=== PATIENT | female | born 1995 | race Caucasian/White ===

== ENCOUNTER 2020-04-14 07:19 | Emergency (ER) | payer BC, OTHER ==
[~2020-04-14] VITALS: Ht 157.2 cm; Wt 59.0 kg
--- NOTE | 2020-04-14 07:27 | ED Cardiac General ---
History of Present Illness General Stated Complaint: CP,PALPATIONS History of Present Illness Date Seen by Provider: Apr 14, 2020 Time Seen by Provider: 07:26 Initial Comments 24-year-old female presents with palpitations. Patient has a known history of palpitations and is currently on metoprolol 25 mg daily. She is also on Lexapro and Klonopin for anxiety. Patient reports that this morning she got to work she felt like her heart was racing. EMS reports when they arrived her heart rate was around 110 but then it elevated in the 180s but then back down about 150s. Patient reports she took her metoprolol just prior to EMS arriving. Patient d enies any cough, fever, chills, nausea or vomiting. Allergies and Home Medications Allergies Coded Allergies: amoxicillin (Verified Allergy, Unknown, 04/14/20) clavulanic acid (Verified Allergy, Unknown, 04/14/20) Patient Home Medication List Home Medication List Reviewed: Yes Review of Systems Review of Systems Constitutional: No chills, No fever, No malaise Respiratory: Denies Cough, Denies Shortness of Air, Denies Wheezing Cardiovascular: Irregular Heart Rate, Palpitations Gastrointestinal: Denies Abdominal Pain, Denies Diarrhea, Denies Nausea, Denies Vomiting Genitourinary: No Symptoms Reported Musculoskeletal: no symptoms reported Skin: no symptoms reported Endocrine: No Symptoms Reported Hematologic/Lymphatic: No Symptoms Reported Past Irlrfiz-Ercqxc-Xabixv Hx Past Med/Social Hx: Reviewed Nursing Past Med/Soc Hx Physical Exam Vital Signs Vital Signs - First Documented 04/14/20 07:20 Temp 37.0 Pulse 99 Resp 18 B/P (MAP) 136/97 (110) Pulse Ox 99 O2 Delivery Room Air Capillary Refill : Height, Weight, BMI Height: '" Weight: lbs. oz. kg; BMI Method: General Appearance: No Apparent Distress, WD/WN HEENT: PERRL/EOMI Neck: Non Tender, Supple Respiratory: Lungs Clear Cardiovascular: Normal Peripheral Pulses, Tachycardia Gastrointestinal: Non Tender, Soft Extremity: Normal Capillary Refill, Normal Inspection, Normal Range of Motion Neurologic/Psychiatric: Alert, Oriented x3, No Motor/Sensory Deficits, Normal Mood/Affect, commercial sales specialist II-XII Norm as Tested Skin: Normal Color, Warm/Dry Progress/Results/Core Measures Results/Orders Lab Results Laboratory Tests Test 04/14/20 07:20 Range/Units White Blood Count 7.6 4.3-11.0 10^3/uL Red Blood Count 5.18 H 3.80-5.11 10^6/uL Hemoglobin 15.0 11.5-16.0 g/dL Hematocrit 46 35-52 % Mean Corpuscular Volume 89 80-99 fL Mean Corpuscular Hemoglobin 29 25-34 pg Mean Corpuscular Hemoglobin Concent 33 32-36 g/dL Red Cell Distribution Width 11.9 10.0-14.5 % Platelet Count 403 H 130-400 10^3/uL Mean Platelet Volume 9.7 9.0-12.2 fL Immature Granulocyte % (Auto) 0 % Neutrophils (%) (Auto) 65 42-75 % Lymphocytes (%) (Auto) 27 12-44 % Monocytes (%) (Auto) 6 0-12 % Eosinophils (%) (Auto) 2 0-10 % Basophils (%) (Auto) 1 0-10 % Neutrophils # (Auto) 4.9 1.8-7.8 10^3/uL Lymphocytes # (Auto) 2.0 1.0-4.0 10^3/uL Monocytes # (Auto) 0.5 0.0-1.0 10^3/uL Eosinophils # (Auto) 0.2 0.0-0.3 10^3/uL Basophils # (Auto) 0.0 0.0-0.1 10^3/uL Immature Granulocyte # (Auto) 0.0 0.0-0.1 10^3/uL Sodium Level 138 135-145 MMOL/L Potassium Level 3.2 L 3.6-5.0 MMOL/L Chloride Level 104 98-107 MMOL/L Carbon Dioxide Level 22 21-32 MMOL/L Anion Gap 12 5-14 MMOL/L Blood Urea Nitrogen 7 7-18 MG/DL Creatinine 0.75 0.60-1.30 MG/DL Estimat Glomerular Filtration Rate > 60 BUN/Creatinine Ratio 9 Glucose Level 103 70-105 MG/DL Calcium Level 9.1 8.5-10.1 MG/DL Corrected Calcium 8.9 8.5-10.1 MG/DL Magnesium Level 2.1 1.6-2.4 MG/DL Total Bilirubin 0.3 0.1-1.0 MG/DL Aspartate Amino Transf (AST/SGOT) 14 5-34 U/L Alanine Aminotransferase (ALT/SGPT) 14 0-55 U/L Alkaline Phosphatase 102 40-136 U/L Troponin I < 0.028 <0.028 NG/ML C-Reactive Protein High Sensitivity 3.63 H 0.00-0.50 MG/DL B-Type Natriuretic Peptide < 10.0 <100.0 PG/ML Total Protein 8.5 H 6.4-8.2 GM/DL Albumin 4.3 3.2-4.5 GM/DL My Orders Orders - DEN LANGLEYR L DO BNP (04/14/20 07:27) Cbc With Automated Diff (04/14/20 07:27) Comprehensive Metabolic Panel (04/14/20 07:27) Hs C Reactive Protein (04/14/20 07:27) Magnesium (04/14/20 07:27) Troponin I (04/14/20 07:27) Chest 1 View, Ap/Pa Only (04/14/20 07:27) Ed Iv/Invasive Line Start (04/14/20 07:37) Ns Iv 1000 Ml (Sodium Chloride 0.9%) (04/14/20 07:45) Magnesium 1 Gm/100 Ml Ivpb (Magnesium Craig (04/14/20 07:45) Metoprolol Tartrate Injection (Lopressor (04/14/20 08:00) Medications Given in ED Current Medications Medications Dose Ordered Sig/Aurelia Route Start Time Stop Time Status Last Admin Dose Admin Magnesium Sulfate/ Dextrose 100 ml @ 100 mls/hr ONCE ONCE IV 04/14/20 07:45 04/14/20 08:44 DC 04/14/20 07:54 100 MLS/HR Vital Signs/I&O 04/14/20 04/14/20 07:20 08:08 Temp 37.0 Pulse 99 84 Resp 18 18 B/P (MAP) 136/97 (110) 136/92 Pulse Ox 99 98 O2 Delivery Room Air Room Air Progress Progress Note : Time: 09:08 Progress Note Patient's heart rate came down into the mid 80s to mid 100s. Patient has known palpitations and unspecific tachycardia. I recommended she call her paving and surfacing labourer. That if she continues to have palpitations and fast heart rate that she takes an additional metoprolol. Patient is stable and will be discharged home Initial ECG Impression Date: Apr 14, 2020 Initial ECG Impression Time: 07:21 Initial ECG Rhythm: S.Tach Initial ECG Intervals: QT (QTC 481) Comment sinus tachycardia, QTC 481, Departure Impression Primary Impression: Intermittent palpitations Disposition: HOME, SELF-CARE Condition: Stable Departure-Patient Inst. Patient Instructions: Palpitations, Tachycardia Add. Discharge Instructions: Take an additional 25 mg metoprolol if symptoms continue or return Follow-up with your paving and surfacing labourer for further evaluation and further recommendations Return to the ER as needed Work/School Note: Work Release Form Date Seen in the Emergency Department: Apr 14, 2020 Return to Work: Apr 15, 2020 MARCELINA LANGLEY DO Apr 14, 2020 07:27
[2020-04-14 07:36] LABS: BASOPHILS % (AUTO) 1 % (0-10); EOSINOPHILS # (AUTO) 0.2 10^3/uL (0.0-0.3); EOSINOPHILS % (AUTO) 2 % (0-10); HEMATOCRIT 46 % (35-52); LYMPHOCYTES % (AUTO) 27 % (12-44); MEAN CORPUSCULAR HEMOGLOBIN 29 pg (25-34); MEAN CORPUSCULAR HGB CONC 33 g/dL (32-36); MEAN CORPUSCULAR VOLUME 89 fL (80-99); MEAN PLATELET VOLUME 9.7 fL (9.0-12.2); MONOCYTES # (AUTO) 0.5 10^3/uL (0.0-1.0); MONOCYTES % (AUTO) 6 % (0-12); NEUTROPHILS # (AUTO) 4.9 10^3/uL (1.8-7.8); NEUTROPHILS % (AUTO) 65 % (42-75); PLATELET COUNT 403 10^3/uL (130-400); WHITE BLOOD COUNT 7.6 10^3/uL (4.3-11.0)
[2020-04-14] MEDS ORDERED: NS IV 1000 ML 1,000 ML IV SCH (07:45)
[2020-04-14] MEDS ORDERED: MAGNESIUM 1 GM/100 ML IVPB 100 ML IV ONE (07:45)
--- NOTE | 2020-04-14 07:49 | NUR ---
HR UP TO [address] NOTIFIED.
--- NOTE | 2020-04-14 07:52 | NUR ---
DR NOTIFIED THAT LOCLAIRE HELD HR 99
[2020-04-14 07:53] LABS: ALBUMIN 4.3 GM/DL (3.2-4.5); CHLORIDE 104 MMOL/L (98-107); POTASSIUM 3.2 MMOL/L (3.6-5.0); SODIUM 138 MMOL/L (135-145)
[2020-04-14 07:54] LABS: CALCIUM 9.1 MG/DL (8.5-10.1)
[2020-04-14 07:55] LABS: GLUCOSE 103 MG/DL (70-105); TOTAL PROTEIN 8.5 GM/DL (6.4-8.2)
[2020-04-14 07:56] LABS: CARBON DIOXIDE 22 MMOL/L (21-32)
[2020-04-14 07:57] LABS: BILIRUBIN,TOTAL 0.3 MG/DL (0.1-1.0)
[2020-04-14 07:59] LABS: ALKALINE PHOSPHATASE 102 U/L (40-136); CREATININE SERUM 0.75 MG/DL (0.60-1.30); GFR ESTIMATED > 60
[2020-04-14 08:00] LABS: BUN/CREATININE RATIO 9
[2020-04-14] MEDS ORDERED: meTOprolol 5 MG/5 ML (LOPRESSOR) VIAL IV ONE (08:00)
[2020-04-14 08:02] LABS: ALANINE AMINOTRANSFERASE 14 U/L (0-55); MAGNESIUM 2.1 MG/DL (1.6-2.4)
--- NOTE | 2020-04-14 08:31 | NUR ---
MONITOR SHOWS SR WITH RATE OF 86
[2020-04-14 09:18] VITALS: BP 117/69
== END 2020-04-14 09:22 | disposition home or self-care (01) ==
LOC: ER 07:21
DX: R00.2 Palpitations (principal); F41.9 Anxiety disorder, unspecified; Z88.1 Allergy status to other antibiotic agents
CPT/HCPCS: 36415; 71045; 80053; 83735; 83880; 84484; 85025; 86141

== ENCOUNTER 2021-11-24 17:46 | Emergency (ER) | payer BC, OTHER ==
[~2021-11-24] VITALS: Ht 157.5 cm; Wt 73.5 kg
[2021-11-24] MEDS ORDERED: LACTATED RINGERS 1,000 ML IV ONE (18:15)
[2021-11-24 18:19] LABS: BASOPHILS # (AUTO) 0.1 10^3/uL (0.0-0.1); BASOPHILS % (AUTO) 1 % (0-10); EOSINOPHILS # (AUTO) 0.4 10^3/uL (0.0-0.3); EOSINOPHILS % (AUTO) 5 % (0-10); HEMATOCRIT 37 % (35-52); HEMOGLOBIN 12.1 g/dL (11.5-16.0); LYMPHOCYTES # (AUTO) 2.6 10^3/uL (1.0-4.0); LYMPHOCYTES % (AUTO) 30 % (12-44); MEAN CORPUSCULAR HEMOGLOBIN 27 pg (25-34); MEAN CORPUSCULAR HGB CONC 33 g/dL (32-36); MEAN CORPUSCULAR VOLUME 82 fL (80-99); MEAN PLATELET VOLUME 9.4 fL (9.0-12.2); MONOCYTES # (AUTO) 0.6 10^3/uL (0.0-1.0); MONOCYTES % (AUTO) 7 % (0-12); NEUTROPHILS # (AUTO) 5.2 10^3/uL (1.8-7.8); NEUTROPHILS % (AUTO) 58 % (42-75); PLATELET COUNT 400 10^3/uL (130-400); WHITE BLOOD COUNT 8.9 10^3/uL (4.3-11.0)
[2021-11-24 18:23] LABS: POTASSIUM 3.2 MMOL/L (3.6-5.0)
[2021-11-24 18:24] LABS: CALCIUM 8.6 MG/DL (8.5-10.1)
[2021-11-24 18:29] LABS: CREATININE SERUM 0.7 MG/DL (0.60-1.30)
[2021-11-24 18:31] LABS: MAGNESIUM 1.6 MG/DL (1.6-2.4)
--- NOTE | 2021-11-24 18:47 | ED Cardiac General ---
History of Present Illness General Chief Complaint: Cardiac/General Problems Stated Complaint: SVT Nursing Triage Note: pt to room by ems. ems reports pt has had hx of SVT for two years. pt went to [facility] ER for SVT recently. ems reports pt HR was 170 on their arrival. ems started iv fluid in route. pt heartrate 107 on arrival Source: patient, old records Exam Limitations: no limitations History of Present Illness Date Seen by Provider: Nov 24, 2021 Time Seen by Provider: 17:50 Initial Comments This 26-year-old young lady presents to the emergency room with tachycardia and lightheadedness. 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 She tried Valsalva maneuvers which made her lightheadedness worse. She then activated EMS. EMS reported a heart rate in the 170s with SVT by their interpretation. I do not have any documentation or rhythm strip demonstrating the heart rate of 170 or SVT. Patient reports a history of inappropriate sinus tachycardia for which she sees Dr. Garcia, summer school coordinator through [facility] who has a satellite clinic in [place]. By the time of arrival to the ER her heart rate was much improved and she was feeling better. She demonstrates sinus tachycardia on the monitor and by EKG. she reports having an ER visit on November 21 in which she possibly had SVT. That ER visit was added in outside facility. She reports her heart rate was as high as 190 at that visit and the interpretation was SVT. Her metoprolol was increased to 50 mg twice daily which she is now taking. Allergies and Home Medications Allergies Coded Allergies: amoxicillin (Verified Adverse Reaction, Unknown, Vomiting, 11/24/21) clavulanic acid (Verified Adverse Reaction, Unknown, Vomiting, 11/24/21) prednisone (Verified Adverse Reaction, Unknown, Tachycardia, 11/24/21) Patient Home Medication List Home Medication List Reviewed: Yes Potassium Chloride (Potassium Chloride) 10 Meq Capsule.er, 10 MEQ PO BID Prescribed by: SHERRY NOEL on 11/24/211901 Review of Systems Review of Systems Constitutional: no symptoms reported EENTM: No Symptoms Reported Respiratory: No Symptoms Reported Cardiovascular: See HPI Gastrointestinal: No Symptoms Reported Genitourinary: No Symptoms Reported Musculoskeletal: no symptoms reported Skin: no symptoms reported Psychiatric/Neurological: Anxiety Endocrine: No Symptoms Reported Hematologic/Lymphatic: No Symptoms Reported Past Onrfkeb-Sogpzk-Tuecnx Hx Patient Social History Tobacco Use?: No Use of E-Cig and/or Vaping dev: No Substance use?: No Alcohol Use?: No Past Medical History Surgeries: No Respiratory: Yes Asthma Cardiac: Yes (Inappropriate sinus tachycardia, possible SVT) Neurological: No : No Genitourinary: No Gastrointestinal: No Musculoskeletal: No Endocrine: No HEENT: No Cancer: No Psychosocial: Yes Anxiety, Depression Integumentary: No Physical Exam Vital Signs Vital Signs - First Documented 11/24/21 17:47 Temp 37.2 Pulse 111 Resp 19 B/P (MAP) 128/82 (97) Pulse Ox 98 Capillary Refill : Height, Weight, BMI Height: '" Weight: lbs. oz. kg; 29.00 BMI Method: General Appearance: WD/WN, Anxious (Mild) HEENT: PERRL/EOMI, Normal ENT Inspection Neck: Normal Inspection Respiratory: Lungs Clear, Normal Breath Sounds, No Accessory Muscle Use Cardiovascular: No Edema, No Murmur, Normal Peripheral Pulses, Tachycardia (Regular) Extremity: Normal Inspection, No Pedal Edema Neurologic/Psychiatric: Alert, Oriented x3, No Motor/Sensory Deficits, captain of guards II- XII Norm as Tested, Other (Mildly anxious) Skin: Normal Color, Warm/Dry Progress/Results/Core Measures Results/Orders Lab Results Laboratory Tests Test 11/24/21 18:00 Range/Units White Blood Count 8.9 4.3-11.0 10^3/uL Red Blood Count 4.51 3.80-5.11 10^6/uL Hemoglobin 12.1 11.5-16.0 g/dL Hematocrit 37 35-52 % Mean Corpuscular Volume 82 80-99 fL Mean Corpuscular Hemoglobin 27 25-34 pg Mean Corpuscular Hemoglobin Concent 33 32-36 g/dL Red Cell Distribution Width 12.8 10.0-14.5 % Platelet Count 400 130-400 10^3/uL Mean Platelet Volume 9.4 9.0-12.2 fL Immature Granulocyte % (Auto) 0 % Neutrophils (%) (Auto) 58 42-75 % Lymphocytes (%) (Auto) 30 12-44 % Monocytes (%) (Auto) 7 0-12 % Eosinophils (%) (Auto) 5 0-10 % Basophils (%) (Auto) 1 0-10 % Neutrophils # (Auto) 5.2 1.8-7.8 10^3/uL Lymphocytes # (Auto) 2.6 1.0-4.0 10^3/uL Monocytes # (Auto) 0.6 0.0-1.0 10^3/uL Eosinophils # (Auto) 0.4 H 0.0-0.3 10^3/uL Basophils # (Auto) 0.1 0.0-0.1 10^3/uL Immature Granulocyte # (Auto) 0.0 0.0-0.1 10^3/uL Sodium Level 139 135-145 MMOL/L Potassium Level 3.2 L 3.6-5.0 MMOL/L Chloride Level 107 98-107 MMOL/L Carbon Dioxide Level 19 L 21-32 MMOL/L Anion Gap 13 5-14 MMOL/L Blood Urea Nitrogen 9 7-18 MG/DL Creatinine 0.70 0.60-1.30 MG/DL Estimat Glomerular Filtration Rate 124 BUN/Creatinine Ratio 13 Glucose Level 91 70-105 MG/DL Calcium Level 8.6 8.5-10.1 MG/DL Magnesium Level 1.6 1.6-2.4 MG/DL TSH [place] Testing 1.46 0.35-4.94 UIU/ML Serum Test, Qualitative NEGATIVE NEGATIVE My Orders Orders - SHERRY DAVIS MD Basic Metabolic Panel (11/24/21 18:09) Cbc With Automated Diff (11/24/21 18:09) Magnesium (11/24/21 18:09) Thyroid Analyzer (11/24/21 18:09) Ed Iv/Invasive Line Start (11/24/21 18:09) Lactated Ringers (Lr 1000 Ml Iv Solution (11/24/21 18:15) Hcg,Qualitative Serum (11/24/21 18:09) Monitor-Rhythm Ecg Trace Only (11/24/21 18:09) Potassium Chloride (Tablet) (Klor Con Ta (11/24/21 19:00) Medications Given in ED Current Medications Medications Dose Ordered Sig/Aurelia Route Start Time Stop Time Status Last Admin Dose Admin Lactated Ringer's 1,000 ml @ 0 mls/hr Q0M ONCE IV 11/24/21 18:15 11/24/21 18:16 DC 11/24/21 18:26 0 MLS/HR Potassium Chloride 20 meq ONCE ONCE PO 11/24/21 19:00 11/24/21 19:01 DC 11/24/21 19:03 20 MEQ Vital Signs/I&O 11/24/21 17:47 Temp 37.2 Pulse 111 Resp 19 B/P (MAP) 128/82 (97) Pulse Ox 98 Blood Pressure Mean: 97 Progress Progress Note #1: Time: 18:49 Progress Note Patient was interviewed and examined. She has mild sinus tachycardia at this time. Labs are pending. She is receiving a liter of LR. Progress Note #2: Progress Note Heart rate stayed stable in the 110s. Patient was feeling relatively well and anxiousness improved. She was found to be hypokalemic. She was hypokalemic on her prior visit here as well and reported hypokalemia at her ER visit on Tuesday. Hypokalemia was treated with potassium 20 mEq orally in the ER. She is being prescribed potassium 10 mEq twice daily to treat her persistent hypokalemia. I have advised her to discuss her tachycardia again with her summer school coordinator. It is unlikely she is having heart rates in the 170s and 190s with inappropriate sinus tachycardia. She is likely experiencing some other tacky arrhythmia such as SVT or atrial flutter. See discharge instructions for further discussion. Initial ECG Impression Date: Nov 24, 2021 Initial ECG Impression Time: 18:03 Initial ECG Rate: 110 Initial ECG Rhythm: S.Tach Comment Sinus tachycardia with no ST elevation or depression. No abnormal intervals or axis deviation. Departure Impression Primary Impression: Tachyarrhythmia Additional Impression: Hypokalemia Disposition: 01 HOME, SELF-CARE Condition: Improved Departure-Patient Inst. Decision time for Depature: 18:50 Referrals: NO,LOCAL PHYSICIAN (PCP/Family) Primary Care Physician Patient Instructions: Sinus Tachycardia (DC), Supraventricular Tachycardia (SVT) Add. Discharge Instructions: Please contact your summer school coordinator first thing tomorrow morning to arrange follow- up. If you have been having heart rates as high as 190, it is unlikely this is related to inappropriate sinus tachycardia. You may have an additional heart rhythm issue such as SVT or atrial flutter. You may need additional rhythm gia toring through a Holter monitor or loop recorder. Please discuss with your summer school coordinator. Also establish with a primary care provider soon as possible. When you do so, have your potassium levels rechecked and to have your hypokalemia (low potassium) monitored by your primary care provider. Take these discharge instructions with you to your follow-up appointments. In the meantime, continue taking metoprolol as prescribed. Avoid any unnecessary stimulants such as caffeine, diet pills, energy drinks, workout supplements, decongestant medications, etc. start your potassium supplement as prescribed. If symptomatic tachycardia returns, try the Valsalva (bearing down) maneuver or a bag of ice on your face. If this does not resolve symptoms, return to the emergency room. If you are able, consider investing in a watch (such as an [employer] watch) that has EKG monitoring capability. All discharge instructions reviewed with patient and/or family. Voiced understanding. Scripts Potassium Chloride (Potassium Chloride) 10 Meq Capsule.er 10 MEQ PO BID, #60 CAP Prov: SHERRY DAVIS MD 11/24/21 SHERRY DAVIS MD Nov 24, 2021 18:47
[2021-11-24 18:52] LABS: TSH (THYROID ANALYZER) 1.46 UIU/ML (0.35-4.94)
[2021-11-24] MEDS ORDERED: KCL 10 MEQ TAB (MICRO K) PO ONE (19:00)
[2021-11-24] MEDS ORDERED: POTA10CA43 PO (19:02)
[2021-11-24 19:17] VITALS: BP 129/91
== END 2021-11-24 19:18 | disposition home or self-care (01) ==
LOC: EDUNIT# 17:46 → ER 17:49
DX: R00.0 Tachycardia, unspecified (principal); E87.6 Hypokalemia
CPT/HCPCS: 36415; 80048; 83735; 84443; 84703; 85025; 93005; 93041

== ENCOUNTER 2021-12-09 16:35 | Emergency (ER) | payer OTHER ==
[~2021-12-09 16:35] MED LIST: POTA10CA43 PO
== END 2021-12-09 17:06 | disposition left against medical advice (07) ==
LOC: EDUNIT# 16:35 → ER 16:36
DX: R00.0 Tachycardia, unspecified (principal)

== ENCOUNTER 2022-06-11 07:45 | Emergency (ER) | payer OTHER ==
[~2022-06-11] VITALS: Ht 157.5 cm; Wt 75.3 kg
[~2022-06-11 07:45] MED LIST changes: -POTA10CA43 PO; +POTA10CA44 PO
[2022-06-11 08:24] LABS: BASOPHILS % (AUTO) 0 % (0-10); EOSINOPHILS # (AUTO) 0.2 10^3/uL (0.0-0.3); EOSINOPHILS % (AUTO) 3 % (0-10); HEMATOCRIT 42 % (35-52); HEMOGLOBIN 14.1 g/dL (11.5-16.0); LYMPHOCYTES # (AUTO) 1.6 10^3/uL (1.0-4.0); LYMPHOCYTES % (AUTO) 23 % (12-44); MEAN CORPUSCULAR HEMOGLOBIN 28 pg (25-34); MEAN CORPUSCULAR HGB CONC 34 g/dL (32-36); MEAN CORPUSCULAR VOLUME 84 fL (80-99); MEAN PLATELET VOLUME 9.4 fL (9.0-12.2); MONOCYTES # (AUTO) 0.4 10^3/uL (0.0-1.0); MONOCYTES % (AUTO) 5 % (0-12); NEUTROPHILS # (AUTO) 4.8 10^3/uL (1.8-7.8); NEUTROPHILS % (AUTO) 68 % (42-75); PLATELET COUNT 344 10^3/uL (130-400); WHITE BLOOD COUNT 7.1 10^3/uL (4.3-11.0)
--- NOTE | 2022-06-11 08:59 | ED GU-Female ---
General Chief Complaint: - Reproductive Stated Complaint: EXCESSIVE MENSTRUAL BLEEDING | ABD PAIN | CRAMPING Nursing Triage Note: PT AMB TO [facility] 8 WITH COMPLAINT OF HEAVY PERIOD, CRAMPING FOR 2 WEEKS. STATES SHE BLED THROUGH A DEPENDS LAST NIGHT. FEELS WEAK THIS MORNING. STATES HAD SIMILAR SITUATION ABOUT A YEAR AGO AND HAD A PERIOD FOR 2 MONTHS. Source: patient Exam Limitations: no limitations History of Present Illness Date Seen by Provider: Jun 11, 2022 Time Seen by Provider: 07:51 Initial Comments This 26-year-old young lady presents to the emergency room with complaints of heavy menstrual bleeding and cramping for about 2 weeks. She is 0. Bleeding has worsened over the past couple of days and she bled through a depends yesterday. At onset of this episode of bleeding she had some sharp pain and passed a large clot. She had a similar episode where she bled for 2 months about this time last year. She was started on oral control. She was fearful of the potential adverse effects such as stroke and decided to stop taking the control. Today she also experienced some lightheadedness and weakness. She was concerned about developing anemia. She reports chronic dysp areunia but no suspicion of vaginal infection. She has not had any vaginal discharge or fever. She is in a monogamous relationship with no concerns about infidelity. She has never had her dyspareunia evaluated, but she has never had painless intercourse. Patient reports having a pelvic ultrasound performed at another facility previously, [facility]. No pelvic ultrasound is on file in her hospital chart. Allergies and Home Medications Allergies Coded Allergies: amoxicillin (Verified Adverse Reaction, Unknown, Vomiting, 11/24/21) clavulanic acid (Verified Adverse Reaction, Unknown, Vomiting, 11/24/21) prednisone (Verified Adverse Reaction, Unknown, Tachycardia, 11/24/21) Patient Home Medication List Home Medication List Reviewed: Yes Medroxyprogesterone Acetate (Provera) 10 Mg Tablet, 10 MG PO DAILY Prescribed by: SHERRY NOEL on 06/11/22 1002 Potassium Chloride (Potassium Chloride) 10 Meq Capsule.er, 10 MEQ PO BID Prescribed by: SHERRY NOEL on 11/24/21 1902 Review of Systems Review of Systems Constitutional: see HPI, weakness EENTM: no symptoms reported Respiratory: no symptoms reported Cardiovascular: see HPI, other ("Feeling faint") Gastrointestinal: see HPI Genitourinary: see HPI : No Musculoskeletal: no symptoms reported Skin: no symptoms reported Psychiatric/Neurological: No Symptoms Reported Endocrine: No Symptoms Reported Hematologic/Lymphatic: No Symptoms Reported Past Mdzudpb-Uddvll-Hikktv Hx Patient Social History Tobacco Use?: No Use of E-Cig and/or Vaping dev: No Substance use?: No Alcohol Use?: No Pt feels they are or have been: No Past Medical History Surgeries: No Respiratory: Yes Asthma Cardiac: Yes (Inappropriate sinus tachycardia, possible SVT) Neurological: No : No Reproductive Disorders: Yes (Dyspareunia) Female Reproductive Disorders: Menstrual Problems (Metromenorrhagia) Genitourinary: No Gastrointestinal: No Musculoskeletal: No Endocrine: No HEENT: No Cancer: No Psychosocial: Yes Anxiety, Depression Integumentary: No Physical Exam Vital Signs Vital Signs - First Documented 06/11/22 07:59 Temp 36.4 Pulse 74 Resp 16 B/P (MAP) 122/82 (95) Pulse Ox 98 O2 Delivery Room Air Capillary Refill : Less Than 3 Seconds Height, Weight, BMI Height: '" Weight: lbs. oz. kg; 30.00 BMI Method: General Appearance: WD/WN, no apparent distress HEENT: normal ENT inspection Neck: normal inspection Cardiovascular: regular rate, rhythm, no edema, no murmur Respiratory: lungs clear, normal breath sounds, no respiratory distress Gastrointestinal: normal bowel sounds, soft; No distended; tenderness (Minimal in the left adnexa) Extremities: normal inspection, no pedal edema Neurologic/Psychiatric: no motor/sensory deficits, alert, normal mood/affect, oriented x 3 Skin: normal color, warm/dry Progress/Results/Core Measures Suspected Sepsis SIRS Temperature: Pulse: 74 Respiratory Rate: 16 Laboratory Tests 06/11/22 08:14: White Blood Count 7.1 Blood Pressure 122 /82 Mean: 95 Laboratory Tests 06/11/22 08:14: Platelet Count 344 06/11/22 09:16: INR Comment 0.9 Results/Orders Lab Results Laboratory Tests Test 06/11/22 08:14 06/11/22 09:16 Range/Units White Blood Count 7.1 4.3-11.0 10^3/uL Red Blood Count 5.00 3.80-5.11 10^6/uL Hemoglobin 14.1 11.5-16.0 g/dL Hematocrit 42 35-52 % Mean Corpuscular Volume 84 80-99 fL Mean Corpuscular Hemoglobin 28 25-34 pg Mean Corpuscular Hemoglobin Concent 34 32-36 g/dL Red Cell Distribution Width 12.0 10.0-14.5 % Platelet Count 344 130-400 10^3/uL Mean Platelet Volume 9.4 9.0-12.2 fL Immature Granulocyte % (Auto) 0 % Neutrophils (%) (Auto) 68 42-75 % Lymphocytes (%) (Auto) 23 12-44 % Monocytes (%) (Auto) 5 0-12 % Eosinophils (%) (Auto) 3 0-10 % Basophils (%) (Auto) 0 0-10 % Neutrophils # (Auto) 4.8 1.8-7.8 10^3/uL Lymphocytes # (Auto) 1.6 1.0-4.0 10^3/uL Monocytes # (Auto) 0.4 0.0-1.0 10^3/uL Eosinophils # (Auto) 0.2 0.0-0.3 10^3/uL Basophils # (Auto) 0.0 0.0-0.1 10^3/uL Immature Granulocyte # (Auto) 0.0 0.0-0.1 10^3/uL Free Thyroxine 0.90 0.70-1.48 NG/DL TSH [place] Testing 4.96 H 0.35-4.94 UIU/ML Serum Test, Qualitative NEGATIVE NEGATIVE Prothrombin Time 12.7 12.2-14.7 SEC INR Comment 0.9 0.8-1.4 Activated Partial Thromboplast Time 32 24-35 SEC My Orders Orders - SHERRY DAVIS MD Cbc With Automated Diff (06/11/22 07:51) Hcg,Qualitative Serum (06/11/22 07:51) Protime With Inr (06/11/22 08:32) Partial Thromboplastin Time (06/11/22 08:32) Thyroid Analyzer (06/11/22 08:32) Free T4 (Free Thyroxine) (06/11/22 08:14) Vital Signs/I&O 06/11/22 07:59 Temp 36.4 Pulse 74 Resp 16 B/P (MAP) 122/82 (95) Pulse Ox 98 O2 Delivery Room Air Capillary Refill : Less Than 3 Seconds Blood Pressure Mean: 95 Progress Note : Progress Note Work-up was relatively unremarkable in the emergency room. Vital signs were stable. Hemoglobin was normal. Dr. IVAN, PULLING MACHINE OPERATOR, was unavailable for consultation. I did call his clinic and requested that they schedule an appointment with the patient. They will contact her by phone. In the meantime, I have recommended Provera 10 mg daily for 10 days to stop the heavy bleeding. Hopefully she will be able to get further direction from either Dr. IVAN or her primary care provider before the end of those 10 days. See discharge instructions that reflect further conversation with the patient. Departure Impression Primary Impression: Menorrhagia Qualified Codes: N92.1 - Excessive and frequent menstruation with irregular cycle Additional Impressions: Severe menstrual cramps Dyspareunia Disposition: HOME, SELF-CARE Condition: Stable Departure-Patient Inst. Decision time for Depature: 10:01 Referrals: RUPALI ANTOINE DO (PCP/Family) Primary Care Physician Patient Instructions: Dyspareunia (Painful Sex), Heavy Periods ED Add. Discharge Instructions: Start Provera and continue for 10 days as prescribed. Follow-up with Dr. IVAN as soon as possible. They intend to call you with an appointment time. If you do not hear from their office by midweek, please call for an update. Return to care if you have worsening symptoms despite starting Provera. You may use Tylenol and/or ibuprofen for pain and cramping. When you follow-up, please also discuss your pain with intercourse as this may have a treatable cause. All discharge instructions reviewed with patient and/or family. Voiced understanding. Scripts Medroxyprogesterone Acetate (Provera) 10 Mg Tablet 10 MG PO DAILY, #10 TAB Prov: SHERRY DAVIS MD 06/11/22 Work/School Note: Work Release Form Date Seen in the Emergency Department: Jun 11, 2022 Return to Work: Jun 12, 2022 Restrictions: No Restrictions Copy Copies To 1: JAZMÍN IVAN JOSHUA T MD Jun 11, 2022 08:59
[2022-06-11 09:08] LABS: TSH (THYROID ANALYZER) 4.96 UIU/ML (0.35-4.94)
[2022-06-11 09:33] LABS: INR 0.9 (0.8-1.4); PROTHROMBIN TIME PATIENT 12.7 SEC (12.2-14.7)
[2022-06-11 09:57] LABS: FREE T4 (FREE THYROXINE) 0.9 NG/DL (0.70-1.48)
[2022-06-11] MEDS ORDERED: MEDR10TA PO (10:02)
[2022-06-11 10:18] VITALS: BP 115/82
== END 2022-06-11 10:18 | disposition home or self-care (01) ==
LOC: EDUNIT# 07:45 → ER 07:48
DX: N92.0 Excessive and frequent menstruation with regular cycle (principal); N94.10 Unspecified dyspareunia
CPT/HCPCS: 36415; 84439; 84443; 84703; 85025; 85610; 85730